=== PATIENT | female | born 2000 | race Caucasian/White ===

== ENCOUNTER 2020-08-07 11:10 | Inpatient (IN) | payer OTHER ==
[~2020-08-07] VITALS: Ht 162.6 cm; Wt 58.8 kg
[2020-08-07] MEDS ORDERED: SODIUM CHLORIDE 0.9% 1,000 ML IV ONE (11:14)
[2020-08-07] MEDS ORDERED: PLEASE ENTER ALLERGIES MC SCH (11:30)
[2020-08-07] MEDS ORDERED: SODIUM CHLORIDE FLUSH 10ML SYR IVF ONE (11:30)
[2020-08-07] MEDS ORDERED: PLEASE ENTER HEIGHT AND WEIGHT MC SCH (11:30)
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
[2020-08-07 11:46] LABS: MICROSCOPIC INDICATED
[2020-08-07 11:47] LABS: AMPHETAMINE SCREEN, URINE Negative (Negative); BARBITURATE SCREEN, URINE Negative (Negative); BENZODIAZEPINE SCREEN, URINE Negative (Negative); CANNABINOID SCREEN, URINE Positive (Negative); COCAINE SCREEN, URINE Positive (Negative); METHADONE SCREEN, URINE Negative (Negative); OPIATE SCREEN, URINE Negative (Negative)
[2020-08-07 11:49] LABS: MEAN CORPUSCULAR HEMOGLOBIN 30.3 pg (27.0-34.8); MEAN CORPUSCULAR HGB CONC 32.7 g/dL (32.4-35.8); MEAN CORPUSCULAR VOLUME 92.6 fL (80-100); MEAN PLATELET VOLUME 9.4 fL (7.4-10.4); PLATELET COUNT 257 x10^3/uL (130-400); RED BLOOD COUNT 4.96 x10^6/uL (3.82-5.3); RED CELL DISTRIBUTION WIDTH 13.1 % (9.6-15.2)
[2020-08-07 12:01] LABS: ALBUMIN 4.9 g/dL (3.4-5.0); ANION GAP 16 mmol/L (5-15); CALCIUM 9.5 mg/dL (8.5-10.1); CHLORIDE 110 mmol/L (98-107)
[2020-08-07 12:04] LABS: ALANINE AMINOTRANSFERASE 23 U/L (12-78); ALKALINE PHOSPHATASE 73 U/L (45-117); BILIRUBIN,TOTAL 0.6 mg/dL (0.2-1.0); CREATININE 0.84 mg/dL (0.55-1.02); TOTAL PROTEIN 8.6 g/dL (6.4-8.2)
[2020-08-07 12:06] LABS: ACETONE, SERUM Negative (Negative)
[2020-08-07 12:08] LABS: BASOPHILS # (AUTO) 0.05 x10^3/uL (0-0.1); BASOPHILS % (AUTO) 0 % (0-1); EOSINOPHILS # (AUTO) 0.21 x10^3/uL (0-0.4); EOSINOPHILS % (AUTO) 1 % (1-7); LYMPHOCYTES # (AUTO) 2.44 x10^3/uL (1-3.4); LYMPHOCYTES % (AUTO) 13 % (22-44); MD SCAN; MONOCYTES # (AUTO) 0.36 x10^3/uL (0.2-0.8); MONOCYTES % (AUTO) 2 % (2-9); NEUTROPHILS # (AUTO) 15.39 x10^3/uL (1.8-6.8); NEUTROPHILS % (AUTO) 83 % (42-75)
[2020-08-07 12:10] LABS: SALICYLATE LEVEL < 1.7 mg/dL (2.8-20.0)
[2020-08-07] MEDS ORDERED: HYDROXYZINE PAMOATE 50MG CAP PO PRN (12:30)
[2020-08-07] MEDS ORDERED: METOCLOPRAMIDE 5 MG/ML, 2ML IVPush PRN (13:00)
[2020-08-07] MEDS ORDERED: ONDANSETRON ODT 4 MG PO PRN (13:00)
[2020-08-07] MEDS ORDERED: ACETAMINOPHEN 325 MG TABLET PO PRN (13:00)
[2020-08-07] MEDS ORDERED: TRAZODONE 50MG TABLET PO PRN (13:00)
[2020-08-07] MEDS ORDERED: HEPARIN 5,000 UNITS/ML, 1ML ONE (13:14)
[2020-08-07] MEDS: HEPARIN 5,000 UNITS/ML, 1ML SQ SCH ×2 (13:19→20:46)
--- NOTE | 2020-08-07 13:54 | NUR ---
PT RESTING CALMLY IN BED AT THIS TIME. SITTER IS AT BEDSIDE. PT BP LOW, PT HAS RIGHT ARM OVER HEAD WITH BP CUFF ON IT. NO DISTRESS NOTED IN PT AT THIS TIME. PT IS COOPERATIVE WITH CARE. PT AWARE PARENTS ARE DRIVING HERE FROM [place]. PT SEEMED CONCERNED THAT PARENTS ARE DRINVING TO [place], STATED THEY ARE GOING TO BE UPSET WITH HER SITUATION. PT INFORMED IF SHE DOES NOT WANT ANY VISITORS, IT IS HER RIGHT. PT VERBALIZED UNDERSTANDING. WILL CONTINUE TO MONITOR.
--- NOTE | 2020-08-07 14:46 | NUR ---
MEAL TRA ORDERED. UNABLE TO GIVE REPORT TO FLOOD RN AND FLOOR SUP AT THIS TIME BOTH ARE BUSY AND UNAVAILABLE.
--- NOTE | 2020-08-07 15:03 | NUR ---
REPORT GIVEN TO TACO LITTLE FOR ROOM 422
--- NOTE | 2020-08-07 15:16 | NUR ---
PT GIVEN MEAL TRAY. PT UP TO THE BATHROOM STEADILY. SITTER AT DOOR FOR OBS.
[2020-08-07 16:15] VITALS: BP 109/71
[2020-08-07] MEDS ORDERED: BUPR-173 PO (16:50)
[2020-08-07] MEDS ORDERED: SERT-238 PO (16:50)
[2020-08-07] MEDS: NS + 20MEQ KCL 1,000 ML IV SCH ×2 (17:21→23:37)
[2020-08-07 19:22] VITALS: BP 108/47
[2020-08-07] MEDS: BUPROPION SR 100 MG TABLET PO SCH (20:46)
[2020-08-08 03:01] VITALS: BP 99/59
[2020-08-08] MEDS: HEPARIN 5,000 UNITS/ML, 1ML SQ SCH ×3 (05:41→23:58)
[2020-08-08] MEDS: NS + 20MEQ KCL 1,000 ML IV SCH (06:27)
[2020-08-08 06:34] LABS: ALBUMIN 3.8 g/dL (3.4-5.0); ANION GAP 10 mmol/L (5-15); CHLORIDE 112 mmol/L (98-107)
[2020-08-08 06:35] LABS: BASOPHILS # (AUTO) 0.01 x10^3/uL (0-0.1); BASOPHILS % (AUTO) 0 % (0-1); EOSINOPHILS # (AUTO) 0.07 x10^3/uL (0-0.4); EOSINOPHILS % (AUTO) 1 % (1-7); LYMPHOCYTES # (AUTO) 2.59 x10^3/uL (1-3.4); LYMPHOCYTES % (AUTO) 30 % (22-44); MD NO; MEAN CORPUSCULAR HEMOGLOBIN 30.6 pg (27.0-34.8); MEAN CORPUSCULAR HGB CONC 32.9 g/dL (32.4-35.8); MEAN CORPUSCULAR VOLUME 92.9 fL (80-100); MEAN PLATELET VOLUME 9.3 fL (7.4-10.4); MONOCYTES # (AUTO) 0.51 x10^3/uL (0.2-0.8); MONOCYTES % (AUTO) 6 % (2-9); NEUTROPHILS # (AUTO) 5.39 x10^3/uL (1.8-6.8); NEUTROPHILS % (AUTO) 63 % (42-75); PLATELET COUNT 212 x10^3/uL (130-400); RED BLOOD COUNT 4.44 x10^6/uL (3.82-5.3); RED CELL DISTRIBUTION WIDTH 12.9 % (9.6-15.2)
[2020-08-08 06:38] LABS: ALANINE AMINOTRANSFERASE 22 U/L (12-78); ALKALINE PHOSPHATASE 61 U/L (45-117); BILIRUBIN,TOTAL 0.9 mg/dL (0.2-1.0); TOTAL PROTEIN 7.1 g/dL (6.4-8.2)
[2020-08-08 07:35] VITALS: BP 105/63
[2020-08-08] MEDS: BUPROPION SR 100 MG TABLET PO SCH ×2 (10:03→21:00)
[2020-08-08] MEDS: SERTRALINE 100MG TABLET PO SCH (10:04)
[2020-08-08 12:16] VITALS: BP 93/45
[2020-08-08 19:43] VITALS: BP 114/69
[2020-08-09 00:26] VITALS: BP 102/53
[2020-08-09 07:04] VITALS: BP 107/64
[2020-08-09 08:57] LABS: ANION GAP 8 mmol/L (5-15); CALCIUM 9.3 mg/dL (8.5-10.1); CHLORIDE 109 mmol/L (98-107); CREATININE 0.74 mg/dL (0.55-1.02)
[2020-08-09] MEDS: BUPROPION SR 100 MG TABLET PO SCH (09:21)
[2020-08-09] MEDS: SERTRALINE 100MG TABLET PO SCH (09:21)
[2020-08-09] MEDS: HEPARIN 5,000 UNITS/ML, 1ML SQ SCH (09:22)
[2020-08-09 12:16] VITALS: BP 134/74
[2020-08-09] MEDS ORDERED: BUPR-173 PO (13:50)
[2020-08-09] MEDS ORDERED: HYDR50CA2 PO (13:50)
[2020-08-09] MEDS ORDERED: SERT100T32 PO (13:50)
== END 2020-08-09 15:00 | disposition home or self-care (01) | DRG 917 ==
LOC: ED 11:34 → EDIP 12:28 → SUATTDRO 12:41 → 4WST 15:47 → DCLOUNGE 08-09 14:53
PROVIDERS: ADMIT Family Medicine; ATTEND Hospitalist
DX: T39.392A Poisoning by other nonsteroidal anti-inflammatory drugs [NSAID], intentional self-harm, initial encounter (principal); G92 Toxic encephalopathy; E87.2 Acidosis; F33.2 Major depressive disorder, recurrent severe without psychotic features; F10.10 Alcohol abuse, uncomplicated; F12.10 Cannabis abuse, uncomplicated; F41.9 Anxiety disorder, unspecified; Y92.89 Other specified places as the place of occurrence of the external cause
CPT/HCPCS: 36415; 80048; 80053; 80307; 81001; 82010; 82800; 83735; 83930; 84100; 84443; 84703; 85025; 87086; 93005; G0378; J1644; J3480; J7030